=== PATIENT | female | born 1995 | race Caucasian/White ===

== ENCOUNTER 2017-02-13 00:46 | Outpatient (CLI) | payer MEDICAID ==
[~2017-02-13] VITALS: Ht 167.6 cm; Wt 64.1 kg
[~2017-02-13 00:46] MED LIST: PHENERGAN 25 TA25 MG PO; PRENATAL MVI PO; VTAMINC250TA PO
[2017-02-13] MEDS ORDERED: PRILOSEC 20MG20 MG PO (01:27)
[2017-02-13] MEDS ORDERED: IRON325 MG PO (01:28)
[2017-02-13 01:30] VITALS: BP 108/59; PULSE 83
[2017-02-13 02:00] VITALS: BP 115/56; PULSE 83
[2017-02-13 02:30] VITALS: BP 111/57; PULSE 80
== END 2017-02-13 02:50 | disposition home or self-care (01) ==
LOC: LDRO 00:46
DX: O99.89 Other specified diseases and conditions complicating pregnancy, childbirth and the puerperium (principal); R10.9 Unspecified abdominal pain; Z3A.33 33 weeks gestation of pregnancy

== ENCOUNTER 2017-03-06 22:47 | Emergency (ER) | payer MEDICAID ==
[~2017-03-06] VITALS: Ht 167.6 cm; Wt 77.3 kg
[~2017-03-06 22:47] MED LIST changes: +IRON325 MG PO; +PRILOSEC 20MG20 MG PO
[2017-03-06 22:49] VITALS: BP 124/59; TEMP 98.3
[2017-03-06 23:48] VITALS: PULSE 92
== END 2017-03-06 23:48 | disposition home or self-care (01) ==
LOC: COL.ER 22:47
DX: O99.89 Other specified diseases and conditions complicating pregnancy, childbirth and the puerperium (principal); R21 Rash and other nonspecific skin eruption; O99.013 Anemia complicating pregnancy, third trimester; D64.9 Anemia, unspecified; O99.333 Smoking (tobacco) complicating pregnancy, third trimester; F17.210 Nicotine dependence, cigarettes, uncomplicated; O99.613 Diseases of the digestive system complicating pregnancy, third trimester; K21.9 Gastro-esophageal reflux disease without esophagitis; Z3A.36 36 weeks gestation of pregnancy

== ENCOUNTER 2018-08-26 01:31 | Emergency (ER) | payer MEDICAID ==
[~2018-08-26] VITALS: Ht 167.6 cm; Wt 64.4 kg
[2018-08-26] VITALS (12 sets, daily range): BP systolic 111–126; BP diastolic 63–96; PULSE 59–76; TEMP 97.9–98.7
[2018-08-26 02:51] LABS: COLLECTION METHOD CLEAN CATCH
[2018-08-26 02:56] LABS: MEAN CELL VOLUME 87 fl (80.0-100.0); MEAN CORPUSCULAR HGB CONC 31 g/dl (33.0-37.0); MEAN PLATELET VOLUME 8.3 fl (7.4-10.4); PLATELET COUNT 342 K/mm3 (130-400); RED BLOOD COUNT 2.41 M/mm3 (4.10-5.30); REDCELL DISTRIBUTION WIDTH-CV 17.9 % (11.5-14.5)
[2018-08-26 03:02] LABS: HEMATOCRIT 20.9 % (37.0-47.0); HEMOGLOBIN 6.4 g/dl (12.5-16.0); MEAN CORPUSCULAR HEMOGLOBIN 27 pg (27.0-31.0)
[2018-08-26 03:04] LABS: MUCOUS Present /lpf; PH 7 (5-8); SQUAMOUS EPITHELIAL None Seen /hpf; URINE APPEARANCE Clear; URINE BACTERIA None Seen /hpf; URINE BILIRUBIN Negative (NEGATIVE); URINE BLOOD Negative (NEGATIVE); URINE COLOR Yellow; URINE GLUCOSE Negative (NEGATIVE); URINE KETONE Negative (NEGATIVE); URINE LEUKOCYTE ESTERASE Negative (NEGATIVE); URINE NITRATE Negative (NEGATIVE); URINE PROTEIN(semi-quant) Negative (NEGATIVE); URINE RBC 0-2 /hpf
[2018-08-26 03:05] LABS: ALBUMIN 3.1 gm/dL (3.5-5.0); BILIRUBIN,TOTAL 0.1 mg/dL (0.0-1.0); CALCIUM 8.2 mg/dL (8.4-10.2); CREATININE, serum 0.57 mg/dL (0.52-1.25); POTASSIUM 3.5 mmol/L (3.4-5.0)
[2018-08-26] MEDS ORDERED: VITAMINC1000TA (03:43)
[2018-08-26] MEDS ORDERED: SENNA-LAX8.6 MG PO (03:43)
[2018-08-26 04:05] LABS: BAND 4 % (0-10); EOSINOPHIL 5 % (0-4); HYPOCHROMIA 3+; LYMPHOCYTE 30 % (20.0-51.0); METAMYELOCYTE 3 % (0-0); NEUTROPHILS 56 % (42.0-75.2); PLATELET ESTIMATE NORMAL (NORMAL)
[2018-08-26 04:06] LABS: POLYCHROMASIA 1+; STOMATOCYTE 1+
== END 2018-08-26 09:11 | disposition home or self-care (01) ==
LOC: COL.ER 01:31
PROVIDERS: Nurse Practitioner
DX: O90.81 Anemia of the puerperium (principal); R60.0 Localized edema; Z88.0 Allergy status to penicillin; F17.210 Nicotine dependence, cigarettes, uncomplicated
CPT/HCPCS: P9016